=== PATIENT | female | born 1980 | race Caucasian/White ===

== ENCOUNTER → 2017-03-07 | Outpatient (CLI) | payer SELFPAY ==
[~2017-03-07] MED LIST: ATEN25TA PO; DICL75TA5 PO; FERR325C PO; HYDR-4246 PO; IBUP-2067 PO; METO-230 PO
== END ==
LOC: WC.BC 10:02
PROVIDERS: ATTEND Internal Medicine
DX: N63 Unspecified lump in breast (principal); N64.4 Mastodynia